=== PATIENT | male | born 1985 | race Caucasian/White ===

== ENCOUNTER 2019-01-10 16:04 | Emergency (ER) | payer MEDICAID ==
[~2019-01-10] VITALS: Ht 185.4 cm; Wt 77.1 kg
[2019-01-10] MEDS ORDERED: ONDANSETRON ODT8 MG PO (18:33)
== END 2019-01-10 17:35 | disposition home or self-care (01) ==
LOC: ED 16:04
DX: E86.0 Dehydration (principal)
CPT/HCPCS: 80053; 81001; 85025; 96361; 96374; 99284-25; J2765; J7120